=== PATIENT | male | born 1950 | race Caucasian/White ===

== ENCOUNTER 2016-07-06 10:14 | Emergency (ER) | payer OTHER ==
--- NOTE | 2016-07-06 11:01 | PROVIDER DOCUMENTATION ---
HPI-Cardiac General - General Chief Complaint: Palpitations Stated Complaint: AFIB/VOMITING Time Seen by Provider: 07/06/16 10:33 Source: patient, family Allergies/Adverse Reactions: Patient Allergies Allergy/AdvReac Type Severity Reaction Status Date / Time No Known Allergies Allergy Verified 07/06/16 10:38 Home Medications: Home Medication List Medication Instructions Recorded Confirmed Last Taken Type Aspirin 81 mg PO QHS 07/06/16 07/06/16 07/05/16 History Esomeprazole [Nexium] 40 mg PO DAILY 07/06/16 07/06/16 Unknown History LISINOpril [Prinivil] 10 mg PO DAILY 07/06/16 07/06/16 Unknown History Metformin [Glucophage] 500 mg PO BID CC 07/06/16 07/06/16 Unknown History Sertraline HCl 200 mg PO DAILY 07/06/16 07/06/16 Unknown History Trazodone [Desyrel] 50 mg PO QHS 07/06/16 07/06/16 Unknown History - History of Present Illness-Cardiac Nature of Presenting Problem: 66 y/o M with unkown family history, presented to ER after he noticed that his chest was fluttering this morning, associated with 2/10 pain in his left shoulder and back. He also stated that he has intermittent feeling of dizziness , especially on standing up. He also reported tingling and an episode of diarrhea last week. Patient quit smoking > 25 years ago and does not know his family hx. He was at his PCP 2 weeks ago who told him that his EKG shows "Afib" . Location: reports: shoulder, back Quality of Pain: reports: dull Severity in ED: mild Onset/Duration: 24 hours ago Timing: gone now Context/Activities at Onset: reports: none Palpitation lasted? (mins): 2 History of arrythmia: reports: none Nitro Today/Relief: reports: no nitro taken today Aspirin Treatment Today: reports: no aspirin today Associated Symptoms: reports: abdominal pain, dizziness Recently Seen Here or By Another Healthcare Provider: Yes (EKG in office showed Afib (as per patient)) Review of Systems - Adult - REVIEW OF SYSTEMS - ADULT Constitutional: reports: no symptoms reported Eyes: reports: no symptoms reported Ears, Nose, Mouth & Throat: reports: no symptoms reported Cardiovascular: reports: chest pain, palpitations Respiratory: reports: dyspnea on exertion Gastrointestinal: reports: abdominal pain, diarrhea Genitourinary: reports: no symptoms reported Musculoskeletal: reports: no symptoms reported Neurological: reports: dizziness/vertigo Psychiatric: reports: anxiety Endocrine: reports: excessive sweating, cold intolerance Past History - Adult - PAST MEDICAL HISTORY-ADULT Review of Records: reports: Nursing Assessment Review, Medications Reviewed Major Childhood Illnesses: reports: denies history Cardiovascular: reports: HTN Respiratory: reports: denies history Gastrointestinal: reports: denies history Genitourinary: reports: denies history Musculoskeletal: reports: denies history Neurological: reports: denies history Psychiatric: reports: anxiety Endocrine/Immune: reports: cancer (lymphoma s/p chemotherapy 10 years ago ), Diabetes Diabetes Type: Type 2 - SOCIAL HISTORY Smoking: quit greater than 1 year (> 25 years ago) Physical Exam-General - PHYSICAL EXAM-ADULT Initial Vital Signs Reviewed: Yes - CONSTITUTIONAL General Appearance: appears well, no apparent distress - EYES Eyes: PERRL/EOMI - HEAD, EARS, NOSE, MOUTH & THROAT HENMT: normocephalic/atraumatic - NECK Neck: supple - RESPIRATORY Respiratory: lungs clear, normal breath sounds - CARDIOVASCULAR Cardiovascular: normal peripheral pulses, regular rate, rhythm, no murmur. negative: irregularly irregular - GASTROINTESTINAL (ABDOMEN) Abdominal Exam: normal bowel sounds, soft - MUSCULOSKELETAL Extremity: normal range of motion, no pedal edema Peripheral Pulses: dorsalis-pedis (R): 2+, dorsalis-pedis (L): 2+ - SKIN Integumentary: warm/dry - NEUROLOGIC Neurologic: grossly normal - PSYCHIATRIC Psych/Mental Status: normal mood/affect, oriented x 3 Progress - PLAN OF CARE/RESULTS Progress/Plan/Lab Results: Laboratory Tests 07/06/16 07/06/16 07/06/16 10:30 10:30 10:30 WBC 13.76 H RBC 4.59 L Hgb 15.8 Hct 45.3 MCV 98.7 MCH 34.4 H MCHC 34.9 RDW Std Deviation 12.4 Plt Count 217 MPV 11.7 H Immature Gran % (Auto) 0.1 Neut % (Auto) 80.2 H Lymph % (Auto) 13.6 L Grainger % (Auto) 5.5 Eos % (Auto) 0.5 Baso % (Auto) 0.1 Immature Gran # (Auto) 0.02 Neut # (Auto) 11.02 H Lymph # (Auto) 1.87 Grainger # (Auto) 0.76 H Eos # (Auto) 0.07 Baso # (Auto) 0.02 D-Dimer Magnesium 2.0 Creatine Kinase 72 [id number] Pept 30 07/06/16 11:08 WBC RBC Hgb Hct MCV MCH MCHC RDW Std Deviation Plt Count MPV Immature Gran % (Auto) Neut % (Auto) Lymph % (Auto) Grainger % (Auto) Eos % (Auto) Baso % (Auto) Immature Gran # (Auto) Neut # (Auto) Lymph # (Auto) Grainger # (Auto) Eos # (Auto) Baso # (Auto) D-Dimer 0.64 H Magnesium Creatine Kinase [id number]-Kjpguxswslz Pept Vital Signs - 24 hr 07/06/16 07/06/16 07/06/16 10:19 10:45 11:34 Temperature 98.2 F Pulse Rate 77 75 66 Pulse Rate [ Sitting] Pulse Rate [ Standing] Pulse Rate [ Supine] Respiratory 18 20 14 Rate Blood Pressure 123/67 118/74 118/74 Blood Pressure [Sitting] Blood Pressure [Standing] Blood Pressure [Supine] O2 Sat by Pulse 100 98 97 Oximetry 07/06/16 11:39 Temperature Pulse Rate Pulse Rate [ 67 Sitting] Pulse Rate [ 90 Standing] Pulse Rate [ 72 Supine] Respiratory Rate Blood Pressure Blood Pressure 102/62 [Sitting] Blood Pressure 87/58 [Standing] Blood Pressure 104/64 [Supine] O2 Sat by Pulse Oximetry Ddimer is elevated most likely due to hx of Non Hodgkin Lymphoma Patient is noted to have orthostatic hypotension which might be causing the dizziness. Was giving one Liter of fluid. EKG did not show any significant abnormality except for LBBB which most likely is an old one giving the negative cardiac enzyme panel - REASSESSMENT Reassessment #1 Time Reassessed: 12:51 Status: improving Reassessment Comment: AOx3, asymptomatic. panel monitor and EKG does not suggest Afib. - EKG 1 Time of EKG reading by physician:: 10:30 EKG Read and Signed by:: Guero Kingsley Rate: 73 Rhythm: regular Pandora: left QRS: LBB (no previous EKG to compare) FL Interval: normal ST Wave: normal Prior EKG Comparison: no prior EKG Comments: ekg done in PCP office showed Afib (as per patient) - XRAY 1 XRAY Study: Chest Impression: Normal Departure - Departure Time of Disposition Order: 12:53 DIAGNOSIS: Orthostatic dizziness Disposition: HOME 01 Certified Medical Emergency: Emergent Condition: Good Additional Instructions: Follow-up with [facility] for [facility]OL[employer] MONITORING Follow-up with PCP for HYPERTENSION (re-evaluation) Return to ER as needed. Referrals: Kathleen Rodrigues MD [Primary Care Provider] - Alex Montalvo MD [STAFF PHYSICIAN] -
[2016-07-06 11:02] LABS: MANUAL DIFF NEEDED? NO
[2016-07-06 11:20] LABS: BASO% 0.1 % (0.0-0.8); EOS# 0.07 X1000 (0.0-0.7); EOS% 0.5 % (0.0-10.0); HEMATOCRIT 45.3 % (42.0-52.0); HEMOGLOBIN 15.8 g/dL (14.0-18.0); IMM GRAN# 0.02 X1000 (0.0-0.04); IMM GRAN% 0.1 % (0.0-0.5); LYMPH# 1.87 X1000 (1.2-3.4); LYMPH% 13.6 % (20.5-51.1); MCH 34.4 PG (27-31); MCHC 34.9 g/dL (33-37); MCV 98.7 FL (81-99); MONO# 0.76 X1000 (0.11-0.59); MONO% 5.5 % (1.7-9.3); MPV 11.7 FL (7.4-10.4); NEUT% 80.2 % (42.2-75.2); PLT 217 X1000 (130-400); RBC 4.59 XMIL (4.7-6.1)
--- NOTE | 2016-07-06 11:37 | Diag Imaging Result Document ---
PROCEDURE NAME: CHEST-2 VIEWS - 07/06/2016 FRONTAL AND LATERAL CHEST, 2 VIEWS: FINDINGS: Compared to 03/12/2016. The lungs are well expanded. The heart is not enlarged. The vessels are not distended. No pneumonia. No pleural effusions. No free air beneath the diaphragm. IMPRESSION: No acute abnormality.
[2016-07-06] MEDS ORDERED: NS 1,000 ML ONE (11:41)
[2016-07-06] MEDS ORDERED: NS 1,000 ML IV ONE (11:45)
[2016-07-06 12:26] LABS: FREE T4 0.64 ng/dL (0.93-1.70)
[2016-07-06 12:36] LABS: UR AMPHETAMINES QUAL NONE DETECTED (NONE DETECT); UR BARBITUATES QUAL NONE DETECTED (NONE DETECT); UR BENZODIAZEPIN QUAL PRESUMPTIVE POSITIVE (NONE DETECT); UR CANNABINOIDS QUAL NONE DETECTED (NONE DETECT); UR COCAINE QUAL NONE DETECTED (NONE DETECT); UR METHADONE QUAL NONE DETECTED (NONE DETECT); UR OPIATES QUAL NONE DETECTED (NONE DETECT); UR OXYCODONE QUAL NONE DETECTED (NONE DETECT); UR PCP QUAL NONE DETECTED (NONE DETECT)
[2016-07-06 13:18] VITALS: BP 103/61
--- NOTE | 2016-07-07 09:36 | EKG Report ---
Test Performed on : 07/06/2016 10:22:28 AM Test Reason : palpitations Blood Pressure : / mmHG Vent. Rate : 073 BPM Atrial Rate : 073 BPM P-R Int : 144 ms QRS Dur : 126 ms QT Int : 412 ms P-R-T Axes : 029 -38 084 degrees QTc Int : 453 ms Normal sinus rhythm. Left axis deviation Left bundle branch block Abnormal ECG No previous ECGs available Unconfirmed Result
== END 2016-07-06 13:17 | disposition home or self-care (01) ==
LOC: ED 10:14
DX: R42 Dizziness and giddiness (principal); R79.1 Abnormal coagulation profile; R00.2 Palpitations; R11.10 Vomiting, unspecified; M25.512 Pain in left shoulder; M54.9 Dorsalgia, unspecified; R20.2 Paresthesia of skin; R19.7 Diarrhea, unspecified; Z79.899 Other long term (current) drug therapy; R10.9 Unspecified abdominal pain; R06.00 Dyspnea, unspecified; R61 Generalized hyperhidrosis; I10 Essential (primary) hypertension; E11.9 Type 2 diabetes mellitus without complications; F41.9 Anxiety disorder, unspecified; Z79.82 Long term (current) use of aspirin; Z87.891 Personal history of nicotine dependence; Z85.72 Personal history of non-Hodgkin lymphomas
CPT/HCPCS: 71020; 82550; 83735; 83880; 84439; 84443; 84484; 85025; 85379; 93005; 99284; G0480; J7030; 80324; 80345; 80346; 80349; 80353; 80358; 80361; 80365; 83992